=== PATIENT | female | born 1970 | race Caucasian/White ===

== ENCOUNTER 2019-02-10 14:34 | Emergency (ER) | payer OTHER ==
[~2019-02-10] VITALS: Ht 157.5 cm; Wt 149.7 kg
[2019-02-10 14:45] VITALS: BP 154/94
--- NOTE | 2019-02-10 16:00 | NUR ---
NO CHANGE IN PATIENT CONDITION AT THIS TIME.
--- NOTE | 2019-02-10 17:00 | NUR ---
NO CHANGE IN PATIENT CONDITION AT THIS TIME.
--- NOTE | 2019-02-10 18:24 | NUR ---
PATIENT AMBULATED TO BED #2
--- NOTE | 2019-02-10 19:10 | NUR ---
48 YO F BIB SELF CO HEAVY VAGINAL BLEEDING SINCE 01/29/19. PT STATES SHE HAS TO CHANGE HER TAMPON EVERY HOUR AND A HALF. PT ALSO REPORTS CRAMPING, WEAKNESS, AND FATIGUE. PMH: DM, HTN, ANEMIA, GERD, HERNIA
--- NOTE | 2019-02-10 20:30 | NUR ---
US AT BEDSIDE.
--- NOTE | 2019-02-10 20:41 | NUR ---
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
[2019-02-10 21:14] LABS: BASOPHILS # (AUTO) 0.1 K/uL (0.00-0.22); BASOPHILS % (AUTO) 0.6 % (0.0-2.0); EOSINOPHILS # (AUTO) 0.1 K/uL (0-0.4); HEMATOCRIT 38.5 % (36-48); HEMOGLOBIN 12.9 g/dL (12.0-16.0); LYMPHOCYTES # (AUTO) 3.7 K/uL (2.5-16.5); LYMPHOCYTES % (AUTO) 29.8 % (20.5-51.1); MEAN CORPUSCULAR HEMOGLOBIN 28 pg (27-31); MEAN CORPUSCULAR HGB CONC 34 g/dL (33-37); MEAN CORPUSCULAR VOLUME 84.5 fL (80-94); NEUTROPHILS # (AUTO) 7.4 K/uL (1.8-7.7); NEUTROPHILS % (AUTO) 60.6 % (42.2-75.2); PLATELET COUNT (AUTO) 212 K/uL (140-450); RED BLOOD CELL COUNT(AUTO) 4.55 MIL/uL (4.20-5.40); RED CELL DISTRIBUTION WIDTH 14.8 % (11.6-13.7); WHITE BLOOD COUNT (AUTO) 12.3 K/uL (4.8-10.8)
--- NOTE | 2019-02-10 21:15 | NUR ---
PT STATES 8/10 CRAMPING PAIN, REQUESTING PAIN MEDICATION AT THIS TIME. ER MD AWARE.
[2019-02-10] MEDS ORDERED: KETOROLAC 60 MG/2 ML VIAL IM ONE (21:20)
[2019-02-10 21:24] LABS: ANION GAP 12.3 (8-16); CARBON DIOXIDE 27.6 mmol/L (21-32); CREATININE 0.8 mg/dL (0.6-1.3); POTASSIUM 3.9 mmol/L (3.5-5.1)
[2019-02-10 21:28] LABS: PROTHROMBIN TIME 9.4 secs (10.8-13.4)
[2019-02-10 21:31] LABS: ALBUMIN 3.4 g/dL (3.4-5.0); TOTAL BILIRUBIN 0.3 mg/dL (0.0-1.0)
--- NOTE | 2019-02-10 22:39 | NUR ---
Patient discharged by Dr. Poe, with v/s stable. Written and verbal after care instructions given and explained. Patient alert, oriented and verbalized understanding of instructions. Ambulatory with steady gait. ID band removed. Patient advised to follow up with PMD. Rx of Naprosyn, and Provera given. Patient educated on indication of medication including possible reaction and side effects. Opportunity to ask questions provided and answered.
[2019-02-10 23:03] VITALS: BP 98/67
== END 2019-02-10 22:39 | disposition home or self-care (01) ==
LOC: MED 14:34
DX: N93.8 Other specified abnormal uterine and vaginal bleeding (principal); E11.9 Type 2 diabetes mellitus without complications; I10 Essential (primary) hypertension; K21.9 Gastro-esophageal reflux disease without esophagitis
CPT/HCPCS: 36415; 76830; 80053; 81002; 81025; 85025; 85610; 85730; 86900; 86901; 96372; 99284; J1885; Q0092